=== PATIENT | male | born 1965 | race Caucasian/White ===

== ENCOUNTER → 2023-10-20 07:58 | Outpatient (REF) | payer MEDICARE, OTHER, SELFPAY | LOC: RAD 07:58 | PROVIDERS: ATTENDING PHYSICIAN Internal Medicine Gastroenterology; FAMILY PHYSICIAN Family Medicine | DX: R11.2 Nausea with vomiting, unspecified (principal); K21.9 Gastro-esophageal reflux disease without esophagitis | CPT/HCPCS: 78264; A9541 ==

== ENCOUNTER 2024-02-12 11:11 | Emergency (ER) | payer MEDICARE, OTHER, SELFPAY ==
[2024-02-12 11:14] VITALS: BP 138/104
[2024-02-12 12:40] VITALS: BMI 20.1
--- NOTE | 2024-02-12 13:04 | ED.GENMED ---
History of Present Illness
General
Chief Complaint: Failure to Thrive
Source: patient
Exam Limitations: none
Time Seen by Provider: 02/12/24 12:35
Nursing documentation reviewed up to this point in time: agreed with
History of Present Illness
History of Present Illness:
pt is a 58 y/o M with h/o anxiety,
chronic GI issues
has trouble eating for the past 3 years
gets nauseated and pain in his epigastric region when he eats
now over the past few months has been dry heaving or vomiting at times too. it is so uncomfortable that he chooses not to eat. he has lost 20 pounds in a few months
he has seen GI and his PCP - more recntly had gastric emptying study that showed mildly delayed emptying at 2 hours and normal at 4 hours (october 2023) and had endoscopy just [address] kimble.
pt has had a ct scan a while ago but no significant findings
he is perplexed why he cannot eat. he has been told it is stress/anxiety and to stop using marijuana which he essentially has, he takes a few gummies here and there.
pt is on disability becuas of all of this
he says that it started happening after a lung infeciton in 2019 that he presumes was 'covid before they knew it was covid'
no black stool, fever, cp, syncope, vomiting blood, alcohol use
Past History
Past History
ED Past Medical History: Psychiatric and Other (chronic GI issues)
ED Past Surgical History: None
Social History
Tobacco: Non-smoker
Alcohol: Occasional
Drug: Marijuana
Review of Systems
Review of Systems
Allergies reviewed?: Yes
All Other Systems: Not applicable
Phy Exam
Physical Exam
Physical Exam:
GENERAL: Alert , in no apparent dist, thinress
HEAD: NCAT
NECK: no midline tenderness, active ROM intact, no paraspinal muscle tenderness;
EYE: pupils equal and reactive, EOMs intact.
ENT: o/p clr, mmm. no hemotympanum
CARDIAC: Regular rate and rhythm, no edema
LUNGS: Clear breath sounds bilaterally, no acute respiratory distress, no wheezes/rales/rhonchi
ABDOMEN: Soft, without focal tenderness, no r/g, no cvat
NEUROLOGICAL: Alert and oriented, no focal neuro deficits, CN intact, 5/5 strength, sensation intact
SKIN: Warm and dry,
MUSCULOSKELETAL: No edema, well perfused.
PSYCH: Normal and appropriate interaction.
Course
Orders/Labs/Results
Orders:
Orders
02/12/24 12:59
CT Angio Abd/Pelvis w/wo IV [CT Abd/pelvis Angio W/wo Iv] Urgent
Comment:
Reason For Exam: weight loss, pain with eating, r/o SMA syndrome
02/12/24 13:00
0.9% Sodium Chloride 1000 ml [Nss] 1,000 ml IV BOLUS
Ondansetron Injectable [Zofran] 4 mg IV NOW STA
Pantoprazole [Protonix IV] 40 mg IV NOW STA
02/12/24 13:02
Complete Blood Count/With Diff Urgent
Comprehensive Metabolic Panel Urgent
Direct Bilirubin Urgent
Comment: ADD ON
Lipase Urgent
02/12/24 13:03
Urinalysis Reflex To Culture Urgent
Date Specimen was Collected: 02/12/24
Time Specimen was Collected: 13:02
02/12/24 13:04
Diphenhydramine [Benadryl] 25 mg IV NOW STA
Metoclopramide [Reglan] 10 mg IV NOW STA
02/12/24 15:35
Add On- LAB Urgent
Tests Added?: indirect, direct bili
Abnormal Lab Results
02/12/24 02/12/24
13:02 13:03
MCH 31.4 H pg
(27.0-31.0)
Absolute Neuts (auto) 7.5 H 10^3/uL
(1.4-6.5)
Absolute Monos (auto) 0.7 H 10^3/uL
(0.1-0.6)
Lymphocytes % 17.4 L %
(20.5-51.1)
Carbon Dioxide 20 L mmol/L
(22-30)
Calcium 10.6 H mg/dl
(8.4-10.2)
Total Bilirubin 5.9 H mg/dl
(0.2-1.3)
Direct Bilirubin 0.7 H mg/dl
(0.0-0.4)
Albumin 5.6 H g/dl
(3.5-5.0)
Urine Ketones 3+ A
(Negative)
02/12/24 13:02
02/12/24 13:02
Vital Signs
Initial and Last Documented VS:
Initial Vital Signs
Temp Pulse Resp BP Pulse Ox
97.9 F 116 20 138/104 95
02/12/24 11:14 02/12/24 11:14 02/12/24 11:14 02/12/24 11:14 02/12/24 11:14
Last Documented Vital Signs
Temp Pulse Resp BP Pulse Ox
97.9 F 73 20 115/83 94
02/12/24 11:14 02/12/24 17:05 02/12/24 11:14 02/12/24 17:00 02/12/24 17:00
MDM/Problems Addressed
Differential Diagnosis Includes:
SMA syndrome, gastritis, PUD, duodenitis,
MDM/Problems Addressed:
gerri boone 58 y/o M with 3 years of epigastric pain post prandial, nausea, sometimes vomiting/dry heaving; he has more recently not been able to tolerate eating and has lost what he says is 20 pounds in the past few months
stopped smoking marijana; had endoscopy 2021 2 cm hiatal hernia, duodenal mucosal inflammation/foveolar metaplasia and lillie gland hyperplasia, no celiac; mild gastritis, neg h pylori
more recently in october she ordered a gastric emptying study which showed mimld delay at 2 hours, normal at 4 hours
he is here because he felt dehydrated; he was mildly tachy and dry mm, otherwise exam was unremarkable other than him being thin;
labs show ketones in urine but lytes and wbc lesley; but his bili is 5.9; his t bili in 2012 is 1.7
i was wondering if he had SMA syndrome so i did a CTA of his a/p and no evidence of sma syndrome
ct report:
There are no CT angiographic findings to suggest SMA syndrome.
Small soft tissue density in the gallbladder fundus, compatible with fundal adenomyomatosis.
1.6 cm mass arising exophytically off the posterolateral mid to lower left kidney, with no CT evidence for significant enhancement. Findings are highly suggestive of a hyperdense cyst, slightly larger than previous examination in October 2020.
Stable 1 cm hyperdense cyst arising from the anterior aspect of the right mid kidney
Colonic diverticula with no convincing CT evidence for diverticulitis. No evidence for bowel obstruction or free intraperitoneal air.
Grade 1 spondylolisthesis at L5-S1 with bilateral L5 pars defects.
spoke with dr. xiong from GI
did not feel that the bilirubinemia was concerning finding warranting admission if his other LFTs were WNL
did recommend that he f/u otupatient
pt may need another endoscopy
protnonix in the meantime
carafate
return precautions
*Critical Care Note
Total Time (30-74mins, 75-104mins- exclusive of procedures): Not Applicable
ED Attending Note
-
Portions of this chart may have been created with voice recognition software.� Occasional wrong word or��sound alike� substitutions may have occurred due to the inherent limitations of voice recognition software.
Discharge Plan
Departure
Patient Disposition: Home (Routine Discharge)
Date of Disposition: 02/12/24
Time of Disposition: 17:04
Patient with high blood pressure during this ER visit?: No
Discharge Problem:
Hyperbilirubinemia, Gastritis
Instructions: Jaundice, Adult (DC), Abdominal Pain, Adult ED
Prescriptions:
New
pantoprazole [Protonix] 20 mg tablet,delayed release (DR/EC)
20 mg PO DAILY Qty: 30 0RF
sucralfate [Carafate] 100 mg/mL suspension
10 ml PO ACHS PRN (Reason: abdominal pain) Qty: 1000 0RF
No Action
alprazolam 1 MG tablet
1 mg PO PRN PRN (Reason: sleep)
Referrals:
Ana Lucas MD [Family Provider] -
Angela Kimble MD [Active] - Follow up in 1 week
Activity Restrictions/Additional Instructions:
Were not exactly sure the cause of your abdominal pain but you should have another evaluation by your GI doctor. One of your liver markers was elevated. I spoke with the on-call GI doctor who recommended that you be followed up in the office. She
said she would get a message to the office to get you an visit. Please call them on Wednesday to confirm that they will move up your appointment.
In the meantime try Protonix 20 mg on an empty stomach and wait 1 hour before eating or drinking anything. You should take it with a glass of water.
If you are having abdominal pain after eating you can try Carafate 2-3 times a day after your pain begins as needed.
Return for black stool, vomiting blood, fever or chills, worsening pain, dehydration or any problems.
Interventions
Interventions:
*Risk Screen - Suicide Last Done: 02/12/24 11:14
*General Assessment Last Done: 02/12/24 11:14
*Neglect/Abuse Screening Last Done: 02/12/24 11:14
ED- Fall Risk Assessment Last Done: 02/12/24 12:40
*ED COVID-19 Vaccine History Last Done: 02/12/24 12:40
*Nursing Disposition Last Done: 02/12/24 17:13
Discharge Date and Time
Discharge Date/Time: 02/12/24 17:13
Print Language: AMHARIC
[2024-02-12] MEDS: ZOFRAN 4 MG IV (13:07)
[2024-02-12] MEDS: NSS 1000 IV (13:07)
[2024-02-12] MEDS: PROTONIX IV 40 MG IV (13:07)
[2024-02-12] MEDS: BENADRYL 25 MG IV (13:12)
[2024-02-12] MEDS: REGLAN 10 MG IV (13:13)
[2024-02-12 13:17] VITALS: BP 132/97
[2024-02-12 13:18] LABS: % Basophils 0.5 % (0-2); % Eosinophils 0.5 % (0-6); % Immature Granulocytes 0.4 % (0-0.5); % Lymphocytes 17.4 % (20.5-51.1); % Monocytes 7.1 % (1.7-9.3); % Neutrophils 74.1 % (42.2-75.2); Absolute Basophils 0.1 10^3/uL (0-0.2); Absolute Eosinophils 0.1 10^3/uL (0-0.7); Absolute Lymphocytes 1.8 10^3/uL (1.2-3.4); Absolute Monocytes 0.7 10^3/uL (0.1-0.6); Absolute Neutrophils 7.5 10^3/uL (1.4-6.5); Hematocrit 48.4 % (39.0-52.0); Hemoglobin 17.7 g/dL (13.0-18.0); Mean Corp Hgb Conc. 36.6 g/dL (33.0-37.0); Mean Corpuscular Hgb 31.4 pg (27.0-31.0); Nucleated Red Blood Cells % 0 % (-); Platelet Count 298 10^3/uL (130-400); Red Blood Cell Count 5.63 10^6/uL (4.70-6.10); Red Cell Dist. Width 11.9 % (11.5-14.5); White Blood Cell Count 10.2 10^3/uL (4.8-10.8)
[2024-02-12 13:33] LABS: ALT (SGPT) 15 U/L (0-50); AST (SGOT) 23 U/L (17-59); Albumin 5.6 g/dl (3.5-5.0); Alkaline Phosphatase 50 U/L (38-126); Blood Urea Nitrogen 12 mg/dl (9-20); Calcium 10.6 mg/dl (8.4-10.2); Carbon Dioxide 20 mmol/L (22-30); Chloride 100 mmol/L (98-107); Estimated Creatinine Clearance 76 ml/min; Glucose 81 mg/dl (70-99); Lipase 106 U/L (23-300); Potassium 4.2 mmol/L (3.5-5.1); Sodium 143 mmol/L (135-145); Total Bilirubin 5.9 mg/dl (0.2-1.3); eGFR > 60.00
[2024-02-12 14:48] LABS: Urine Albumin Negative (Neg - Trace); Urine Bilirubin Negative (Negative); Urine Character Clear (Clear); Urine Color Yellow; Urine Glucose Negative (Negative); Urine Ketone 3+ (Negative); Urine Leukocyte Negative (Negative); Urine Nitrite Negative (Negative); Urine Occult Blood Negative (Negative); Urine Specific Gravity 1.015 (<1.030); Urine Urobilinogen Negative (Neg - 1+)
[2024-02-12 15:12] VITALS: BP 121/93
[2024-02-12 16:00] VITALS: BP 114/89
[2024-02-12 17:00] VITALS: BP 115/83
[2024-02-12 17:19] LABS: Direct Bilirubin 0.7 mg/dl (0.0-0.4)
== END 2024-02-12 17:13 | disposition home or self-care (01) ==
LOC: EMR 11:11
PROVIDERS: Physician Assistant; EMERGENCY PHYSICIAN Student in an Organized Health Care Education/Training Program; FAMILY PHYSICIAN Family Medicine
DX: E80.6 Other disorders of bilirubin metabolism (principal); K29.70 Gastritis, unspecified, without bleeding; F41.9 Anxiety disorder, unspecified
CPT/HCPCS: 99284; 96374; 96375; 96361; 74174; 80053; 81003; 82248; 83690; 85025; Q9967

== ENCOUNTER → 2024-03-17 06:28 | Day surgery (SDC) | payer MEDICARE, OTHER, SELFPAY | LOC: GI 06:28 | PROVIDERS: ATTENDING PHYSICIAN Internal Medicine Gastroenterology | DX: R12 Heartburn (principal); R11.2 Nausea with vomiting, unspecified; R10.9 Unspecified abdominal pain; K31.7 Polyp of stomach and duodenum; K29.50 Unspecified chronic gastritis without bleeding; K31.89 Other diseases of stomach and duodenum | CPT/HCPCS: 43239; 88305; 88342 ==

== ENCOUNTER → 2024-07-18 11:31 | Outpatient (REF) | payer MEDICARE, OTHER, SELFPAY ==
[2024-07-18 12:56] LABS: % Basophils 0.7 % (0-2); % Eosinophils 1.3 % (0-6); % Immature Granulocytes 0.1 % (0-0.5); % Lymphocytes 32.3 % (20.5-51.1); % Monocytes 8.1 % (1.7-9.3); % Neutrophils 57.5 % (42.2-75.2); Absolute Basophils 0.1 10^3/uL (0-0.2); Absolute Eosinophils 0.1 10^3/uL (0-0.7); Absolute Lymphocytes 2.4 10^3/uL (1.2-3.4); Absolute Monocytes 0.6 10^3/uL (0.1-0.6); Absolute Neutrophils 4.3 10^3/uL (1.4-6.5); Hematocrit 48.1 % (39.0-52.0); Mean Corp Hgb Conc. 35.3 g/dL (33.0-37.0); Mean Corpuscular Hgb 31.5 pg (27.0-31.0); Mean Corpuscular Volume 89.1 fL (80.0-94.0); Mean Platelet Volume 9.9 fL (7.4-10.4); Nucleated Red Blood Cells % 0 % (-); Platelet Count 289 10^3/uL (130-400); Red Cell Dist. Width 12.2 % (11.5-14.5); White Blood Cell Count 7.5 10^3/uL (4.8-10.8)
[2024-07-18 13:24] LABS: ALT (SGPT) 15 U/L (0-50); AST (SGOT) 23 U/L (17-59); Alkaline Phosphatase 38 U/L (38-126); Blood Urea Nitrogen 16 mg/dl (9-20); Calcium 9.8 mg/dl (8.4-10.2); Carbon Dioxide 26 mmol/L (22-30); Chloride 99 mmol/L (98-107); Glucose 105 mg/dl (70-99); HDL Cholesterol 45 mg/dl; LDL Cholesterol, Calculated 118 mg/dl; Potassium 4.7 mmol/L (3.5-5.1); Sodium 139 mmol/L (135-145); Total Bilirubin 3.1 mg/dl (0.2-1.3); Total Cholesterol 185 mg/dl (50-199); Total Protein 7.2 g/dl (6.3-8.2); Triglyceride 110 mg/dl (10-149); Very Low Density Lipoprotein 22 mg/dl (0-30); eGFR > 60.00
[2024-07-18 13:37] LABS: Vitamin D, 25-OH*** 36.9 ng/mL (30-80)
[2024-07-18 13:50] LABS: PSA, Total - Screen 2.05 ng/ml (0.0-4.0); TSH 2.06 uIU/ml (0.47-4.68)
== END ==
LOC: REG 11:31
PROVIDERS: ATTENDING PHYSICIAN Family Medicine
DX: R79.89 Other specified abnormal findings of blood chemistry (principal); E78.00 Pure hypercholesterolemia, unspecified; R79.9 Abnormal finding of blood chemistry, unspecified; Z12.5 Encounter for screening for malignant neoplasm of prostate; E55.9 Vitamin D deficiency, unspecified
CPT/HCPCS: 36415; 80053; 80061; 82306; 84443; 85025; G0103